=== PATIENT | male | born 1970 | race Caucasian/White ===

== ENCOUNTER 2016-10-17 21:11 | Emergency (ER) | payer OTHER ==
[~2016-10-17] VITALS: Ht 170.2 cm; Wt 92.2 kg
[~2016-10-17 21:11] MED LIST: ACID CONTROL150 MG PO; AMOX TR-K CLV1 EAC4 PO; ANTIBIOTIC; CLARITIN10 M3 PO; GLIPIZIDE5 MG PO; GLUCOPHAGE500 MG PO; HUMIRA20 MG/0.4 SC; HUMIRA40 MG/0.8 SC; LISINOPRIL20 MG PO; NASONEX17 GM BOTH NARES
[2016-10-17 21:39] LABS: POINT-OF-CARE METER ID UU13113747
[2016-10-17 22:13] LABS: HEMATOCRIT 38.7 % (38.0-50.0); MCH 29.9 PG (29.0-34.0); MCHC 33.6 G/DL (30.0-36.0); MEAN PLAT.VOLUME 9.7 uM^3 (9.0-12.4); PLATELET COUNT 274 K/uL (156-360); RBC DIS.WIDTH-CV 11.9 % (11.8-14.6); RBC DIS.WIDTH-SD 38.6 % (39-53); RED BLOOD COUNT 4.35 M/uL (4.00-5.50); WHITE BLOOD COUNT 14.1 K/uL (4.1-10.2)
[2016-10-17 22:24] LABS: CHLORIDE 103 mEq/L (99-109); POTASSIUM 3.9 mEq/L (3.7-5.4); SODIUM 138 mEq/L (136-147)
[2016-10-17 22:26] LABS: GLUCOSE 202 mg/dL (70-99)
[2016-10-17 22:27] LABS: ANION GAP 12 MEQ/L (2-14)
[2016-10-17 22:29] LABS: GFR ESTIMATE (CALCULATED) > 59 mL/min/
[2016-10-17 22:30] LABS: UREA NITROGEN (BUN) 18 mg/dL (9-23)
[2016-10-18 00:16] LABS: TROP-I INTERPRETATION NEGATIVE; TROPONIN-I 0.03 ng/mL (0.0-0.30)
[2016-10-18 00:40] VITALS: BP 120/79
== END 2016-10-18 00:41 | disposition home or self-care (01) ==
LOC: EME → EDBD 21:11 → EME 10-18 00:41
PROVIDERS: Emergency Medicine
DX: G40.909 Epilepsy, unspecified, not intractable, without status epilepticus (principal); R06.83 Snoring; I10 Essential (primary) hypertension; E11.9 Type 2 diabetes mellitus without complications; J45.909 Unspecified asthma, uncomplicated; K21.9 Gastro-esophageal reflux disease without esophagitis; F79 Unspecified intellectual disabilities; Z87.01 Personal history of pneumonia (recurrent); L40.9 Psoriasis, unspecified; Z79.84 Long term (current) use of oral hypoglycemic drugs
CPT/HCPCS: 70450; 71010; 80048; 82948; 84484; 85027; 99281; 99285; J2405; J7030

== ENCOUNTER 2016-11-26 17:38 | Observation (INO) | payer OTHER ==
[~2016-11-26] VITALS: Ht 172.7 cm; Wt 92.8 kg
[2016-11-26 18:33] LABS: HEMATOCRIT 41.8 % (38.0-50.0); MCH 29.9 PG (29.0-34.0); MCHC 33.5 G/DL (30.0-36.0); MCV 89.3 FL (86-99); MEAN PLAT.VOLUME 9.6 uM^3 (9.0-12.4); PLATELET COUNT 314 K/uL (156-360); RBC DIS.WIDTH-CV 12.2 % (11.8-14.6); RBC DIS.WIDTH-SD 40.1 % (39-53); RED BLOOD COUNT 4.68 M/uL (4.00-5.50); WHITE BLOOD COUNT 9.1 K/uL (4.1-10.2)
[2016-11-26 18:41] LABS: CHLORIDE 99 mEq/L (99-109); POTASSIUM 4.6 mEq/L (3.7-5.4); SODIUM 139 mEq/L (136-147)
[2016-11-26 18:47] LABS: GFR ESTIMATE (CALCULATED) > 59 mL/min/
[2016-11-26 18:48] LABS: UREA NITROGEN (BUN) 15 mg/dL (9-23)
[2016-11-26 18:54] LABS: TROP-I INTERPRETATION NEGATIVE; TROPONIN-I < 0.01 ng/mL (0.0-0.30)
[2016-11-26 19:05] LABS: GLUCOSE 110 mg/dL (70-99)
[2016-11-26 19:07] LABS: ANION GAP 14 MEQ/L (2-14)
[2016-11-26] MEDS ORDERED: GLUCOTROL10 MG PO (19:11)
[2016-11-26] MEDS ORDERED: GLUCOPHAGE850 MG PO (19:12)
[2016-11-26 21:58] LABS: Estimated Average Glucose 154 mg/dL (70-123)
[2016-11-26 22:17] VITALS: BP 137/93
[2016-11-26 22:45] VITALS: BP 116/71
[2016-11-26 22:51] LABS: POINT-OF-CARE METER ID UU13113831
[2016-11-27 00:24] VITALS: BP 125/68
[2016-11-27 01:31] LABS: TROP-I INTERPRETATION NEGATIVE; TROPONIN-I < 0.01 ng/mL (0.0-0.30)
[2016-11-27 04:18] VITALS: BP 139/81
[2016-11-27 05:09] LABS: CHLORIDE 99 mEq/L (99-109); POTASSIUM 4.1 mEq/L (3.7-5.4); SODIUM 137 mEq/L (136-147)
[2016-11-27 05:11] LABS: GLUCOSE 154 mg/dL (70-99)
[2016-11-27 05:12] LABS: ANION GAP 11 MEQ/L (2-14)
[2016-11-27 05:15] LABS: GFR ESTIMATE (CALCULATED) > 59 mL/min/
[2016-11-27 05:16] LABS: UREA NITROGEN (BUN) 16 mg/dL (9-23)
[2016-11-27 05:22] LABS: TROP-I INTERPRETATION NEGATIVE; TROPONIN-I < 0.01 ng/mL (0.0-0.30)
[2016-11-27 05:38] LABS: HEMATOCRIT 40.4 % (38.0-50.0); MCH 29.8 PG (29.0-34.0); MCHC 32.9 G/DL (30.0-36.0); MCV 90.4 FL (86-99); MEAN PLAT.VOLUME 9.9 uM^3 (9.0-12.4); PLATELET COUNT 297 K/uL (156-360); RBC DIS.WIDTH-CV 12.5 % (11.8-14.6); RBC DIS.WIDTH-SD 41.1 % (39-53); RED BLOOD COUNT 4.47 M/uL (4.00-5.50)
[2016-11-27 05:54] LABS: HDL CHOLESTEROL 26 MG/DL (Desirable>=40); LDL CHOLESTEROL 72 mg/dL (Desirable<100); NON-HDL CHOLESTEROL 97 mg/dL (Desirable<160); SAMPLE HEMOLYSIS CHECK 0; SAMPLE ICTERIC CHECK 0; SAMPLE LIPEMIA CHECK 0; TOTAL CHOLESTEROL 123 mg/dL (Desirable<200); TRIGLYCERIDES 123 MG/DL (Normal: <150)
[2016-11-27] MEDS ORDERED: ASPIR-LOW81 MG PO (07:54)
[2016-11-27 08:42] VITALS: BP 128/79
[2016-11-27 09:09] LABS: POINT-OF-CARE METER ID UU13113831
== END 2016-11-27 09:43 | disposition home or self-care (01) ==
LOC: EME 17:38 → EDOF 19:45 → 5WEST 19:45 → EDOF 19:45 → ENRESERV 19:54 → 5WEST 22:09
PROVIDERS: Hospitalist
DX: R07.9 Chest pain, unspecified (principal); R56.9 Unspecified convulsions; I10 Essential (primary) hypertension; E11.9 Type 2 diabetes mellitus without complications; L40.9 Psoriasis, unspecified; J44.9 Chronic obstructive pulmonary disease, unspecified; Z87.891 Personal history of nicotine dependence; Z79.84 Long term (current) use of oral hypoglycemic drugs; E66.9 Obesity, unspecified; Z68.31 Body mass index [BMI] 31.0-31.9, adult; K21.9 Gastro-esophageal reflux disease without esophagitis
CPT/HCPCS: 71020; 80048; 80061; 82948; 83036; 83735; 84484; 85027; 93005; 99281; 99285; G0378; J1200; J1644; J1815; J1885; J2270

== ENCOUNTER 2017-09-13 12:02 | Emergency (ER) | payer OTHER ==
[~2017-09-13] VITALS: Ht 172.7 cm; Wt 95.0 kg
[~2017-09-13 12:02] MED LIST changes: +ASPIR-LOW81 MG PO; +GLUCOPHAGE850 MG PO; +GLUCOTROL10 MG PO
[2017-09-13] MEDS ORDERED: ULTRAM50 MG PO (12:27)
[2017-09-13 12:42] VITALS: BP 141/95
== END 2017-09-13 12:43 | disposition home or self-care (01) ==
LOC: EME 12:02
DX: M79.674 Pain in right toe(s) (principal); Z48.01 Encounter for change or removal of surgical wound dressing; I10 Essential (primary) hypertension; E11.9 Type 2 diabetes mellitus without complications; Z79.84 Long term (current) use of oral hypoglycemic drugs; Z87.891 Personal history of nicotine dependence
CPT/HCPCS: 99281; 99283